=== PATIENT | male | born 1990 | race Hispanic/Latino ===

== ENCOUNTER 2020-06-19 06:49 | Emergency (ER) | payer SELFPAY ==
[~2020-06-19] VITALS: Ht 172.7 cm; Wt 64.0 kg
[~2020-06-19 06:49] MED LIST: NO HOME MEDS; PROTONIX40 MG PO; ULTRAM50 MG OR
[2020-06-19] MEDS ORDERED: KEFLEX500 M1 PO (08:06)
[2020-06-19] MEDS ORDERED: CIPROFLOXACN500 MG PO (08:06)
[2020-06-19 09:10] VITALS: BP 120/68
== END 2020-06-19 09:10 | disposition home or self-care (01) | DRG 605 ==
LOC: ED 06:49
DX: S91.331A Puncture wound without foreign body, right foot, initial encounter (principal); L08.9 Local infection of the skin and subcutaneous tissue, unspecified; W45.0XXA Nail entering through skin, initial encounter; Y92.009 Unspecified place in unspecified non-institutional (private) residence as the place of occurrence of the external cause